=== PATIENT | female | born 1965 | race Caucasian/White ===

== ENCOUNTER 2019-04-11 12:31 | Outpatient (CLI) | payer OTHER ==
[~2019-04-11 12:31] MED LIST: CETI10CA; ESCI10TA10 PO
== END 2019-04-11 23:59 | disposition home or self-care (01) ==
LOC: CFH 12:31
PROVIDERS: ATTEND Family Medicine
DX: R01.1 Cardiac murmur, unspecified (principal)
CPT/HCPCS: 75571

== ENCOUNTER 2019-04-11 12:31 | Outpatient (CLI) | payer OTHER | END 2019-04-11 23:59 | disposition home or self-care (01) | LOC: CFH 12:31 | PROVIDERS: ATTEND Internal Medicine Cardiovascular Disease | DX: R01.1 Cardiac murmur, unspecified (principal); I10 Essential (primary) hypertension; E78.5 Hyperlipidemia, unspecified; Z82.49 Family history of ischemic heart disease and other diseases of the circulatory system | CPT/HCPCS: 75571; 93306 ==

== ENCOUNTER → 2021-01-10 | Outpatient (CLI) | payer BC | END | disposition home or self-care (01) | LOC: RAD 15:32 | PROVIDERS: ATTEND Family Medicine | DX: M79.662 Pain in left lower leg (principal) ==